=== PATIENT | female | born 1985 | race Caucasian/White ===

== ENCOUNTER 2019-04-03 23:20 | Emergency (ER) | payer OTHER, SELFPAY ==
--- NOTE | 2019-04-04 00:13 | ER ---
Nurse's Notes [facility] Name: Deanna Parikh Age: 33 yrs Sex: Female : 1985 Arrival Date: 04/03/2019 Time: 23:26 Bed 18 Private MD: Diagnosis: Allergic contact dermatitis Presentation: 04/03 23:29 Presenting complaint: Patient states: I have a wound on my left lower leg that has been la1 there for about a week. The doctor gave me a shot in my butt but I dont know what it is. Transition of care: patient was not received from another setting of care. Onset of symptoms was April 03, 2019. Risk Assessment: Do you want to hurt yourself or someone else? Patient reports no desire to harm self or others. Initial Sepsis Screen: Does the patient meet any 2 criteria? No. Patient's initial sepsis screen is negative. Does the patient have a suspected source of infection? No. Patient's initial sepsis screen is negative. Care prior to arrival: None. 23:29 Method Of Arrival: Ambulatory la1 23:29 Acuity: KRUNAL 4 la1 Triage Assessment: 23:30 General: Appears in no apparent distress. comfortable, Behavior is calm, cooperative, rr5 appropriate for age. 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 - Social history:: Smoking status: Patient uses tobacco products, smokes one pack cigarettes per day. - Ebola Screening: : No symptoms or risks identified at this time. Screenin:30 Abuse screen: Denies threats or abuse. Denies injuries from another. Nutritional rr5 screening: No deficits noted. Tuberculosis screening: No symptoms or risk factors identified. Fall Risk None identified. Total Sorensen Fall Scale indicates No Risk (0-24 pts). Assessment: 23:30 General: Appears in no apparent distress. comfortable, Behavior is calm, cooperative, rr5 appropriate for age. Pain: Denies pain. Neuro: Level of Consciousness is awake, alert, obeys commands, Oriented to person, place, time, situation, Appropriate for age. 23:30 Cardiovascular: Capillary refill < 3 seconds Patient's skin is warm and dry. rr5 Respiratory: Airway is patent Respiratory effort is even, unlabored, Respiratory pattern is regular, symmetrical. GI: No signs and/or symptoms were reported involving the gastrointestinal system. : No signs and/or symptoms were reported regarding the genitourinary system. EENT: No signs and/or symptoms were reported regarding the EENT system. Derm: Skin is intact, Skin temperature is warm Rash noted that is raised, on left lower leg near ankle area dry and scaly. Musculoskeletal: Capillary refill < 3 seconds, Range of motion: intact in all extremities. Vital Signs: 23:30 BP 148 / 98; Pulse 96; Resp 16; Temp 97.4; Pulse Ox 98% on R/A; Weight 68.04 kg; Height la1 5 ft. 3 in. (160.02 cm); 04/04 00:25 BP 120 / 81; Pulse 90; Resp 16; Temp 98.1; Pulse Ox 99% on R/A; rr5 04/03 23:30 Body Mass Index 26.57 (68.04 kg, 160.02 cm) la1 ED Course: 04/03 23:26 Patient arrived in ED. do 23:30 Triage completed. la1 23:31 Arm band placed on left wrist. la1 23:33 Uvaldo Maldonado NP is PHCP. pm1 23:33 Alex Granados MD is Attending Physician. pm1 23:33 Patient has correct armband on for positive identification. Bed in low position. Call rr5 light in reach. 04/04 00:06 Luis Gomez RN is Primary Nurse. rr5 00:20 Wound care: to rashes located on anterior aspect of left ankle was cleaned with rr5 Hibiclens, dressed with Neosporin, 4X4s, Kerlix, Patient tolerated well. 00:30 No provider procedures requiring assistance completed. Patient did not have IV access rr5 during this emergency room visit. 00:36 Primary Nurse role handed off by Luis Gomez, RN rr5 00:37 Luis Gomez RN is Primary Nurse. rr5 Administered Medications: 00:20 Drug: Benadryl 25 mg Route: PO; rr5 00:35 Follow up: Response: Medication administered at discharge. rr5 00:20 Drug: Pepcid 20 mg Route: PO; rr5 00:35 Follow up: Response: Medication administered at discharge. rr5 00:20 Drug: Bactrim (160 mg-800 mg (DS) 1 tablet Route: PO; rr5 00:35 Follow up: Response: Medication administered at discharge. rr5 00:22 Drug: Decadron 10 mg Route: IM; Site: right gluteus; rr5 00:35 Follow up: Response: Medication administered at discharge. rr5 Outcome: 00:12 Discharge ordered by MD. pm1 00:30 Discharged to home ambulatory. rr5 00:30 Condition: stable 00:30 Discharge instructions given to patient, family, Instructed on discharge instructions, follow up and referral plans. medication usage, Demonstrated understanding of instructions, follow-up care, medications, Prescriptions given X 4. 00:33 Patient left the ED. rr5 00:41 Patient left the ED. rr5 Signatures: Janes Arevalo RN RN la1 Rhonda Soto Patrick, NP AMPHIBIAN CREWMEMBER pm1 Luis Gomez RN RN rr5
--- NOTE | 2019-04-04 00:14 | EDPHYS ---
Physician Documentation [facility] Name: Deanna Parikh Age: 33 yrs Sex: Female : 1985 Arrival Date: 04/03/2019 Time: 23:26 Bed 18 Private MD: ED Physician Alex Granados HPI: 04/04 00:38 This 33 yrs old Female presents to ER via Ambulatory with complaints of Rash. pm1 00:38 The patient's rash thought to be caused by Contact allergy. The rash is located on the pm1 right arm and left arm and anterior aspect of left ankle. The rash can be described as crusted, raised. Onset: The symptoms/episode began/occurred 1 week(s) ago. Associated signs and symptoms: Pertinent positives: itching, Pertinent negatives: fever, swelling of lips, swelling of throat, swelling of tongue. Severity of symptoms: in the emergency department the symptoms are unchanged. The patient has not experienced similar symptoms in the past. The patient has been recently seen by a physician: the patient's primary care provider, given steroid shot, no prescription. 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 - Social history:: Smoking status: Patient uses tobacco products, smokes one pack cigarettes per day. - Ebola Screening: : No symptoms or risks identified at this time. ROS: 04/04 00:38 Constitutional: Negative for fever, chills, and weight loss, Eyes: Negative for injury, pm1 pain, redness, and discharge, ENT: Negative for injury, pain, and discharge, Neck: Negative for injury, pain, and swelling, Cardiovascular: Negative for chest pain, palpitations, and edema, Respiratory: Negative for shortness of breath, cough, wheezing, and pleuritic chest pain, Abdomen/GI: Negative for abdominal pain, nausea, vomiting, diarrhea, and constipation, Back: Negative for injury and pain, : Negative for injury, bleeding, discharge, and swelling, MS/Extremity: Negative for injury and deformity. Skin: Positive for rash, of the anterior aspect of left ankle and left arm and right arm. Neuro: Positive for numbness, of the dorsum of left foot. Exam: 00:38 Constitutional: This is a well developed, well nourished patient who is awake, alert, pm1 and in no acute distress. Head/Face: Normocephalic, atraumatic. Eyes: Pupils equal round and reactive to light, extra-ocular motions intact. Lids and lashes normal. Conjunctiva and sclera are non-icteric and not injected. Cornea within normal limits. Periorbital areas with no swelling, redness, or edema. ENT: Nares patent. No nasal discharge, no septal abnormalities noted. Tympanic membranes are normal and external auditory canals are clear. Oropharynx with no redness, swelling, or masses, exudates, or evidence of obstruction, uvula midline. Mucous membranes moist. Neck: Trachea midline, no thyromegaly or masses palpated, and no cervical lymphadenopathy. Supple, full range of motion without nuchal rigidity, or vertebral point tenderness. No Meningismus. Chest/axilla: Normal chest wall appearance and motion. Nontender with no deformity. No lesions are appreciated. Cardiovascular: Regular rate and rhythm with a normal S1 and S2. No gallops, murmurs, or rubs. Normal PMI, no JVD. No pulse deficits. Respiratory: Lungs have equal breath sounds bilaterally, clear to auscultation and percussion. No rales, rhonchi or wheezes noted. No increased work of breathing, no retractions or nasal flaring. Abdomen/GI: Soft, non-tender, with normal bowel sounds. No distension or tympany. No guarding or rebound. No evidence of tenderness throughout. Back: No spinal tenderness. No costovertebral tenderness. Full range of motion. 00:38 MS/ Extremity: Pulses equal, no cyanosis. Neurovascular intact. Full, normal range of motion. 00:38 Skin: Appearance: normal except for affected area, consistent with contact dermatitis. 00:38 Neuro: Orientation: is normal, Motor: is normal, moves all fours. Vital Signs: 04/03 23:30 BP 148 / 98; Pulse 96; Resp 16; Temp 97.4; Pulse Ox 98% on R/A; Weight 68.04 kg; Height la1 5 ft. 3 in. (160.02 cm); 04/04 00:25 BP 120 / 81; Pulse 90; Resp 16; Temp 98.1; Pulse Ox 99% on R/A; rr5 04/03 23:30 Body Mass Index 26.57 (68.04 kg, 160.02 cm) la1 MDM: 04/03 23:37 Patient medically screened. pm1 04/04 00:11 Data reviewed: vital signs. Data interpreted: Pulse oximetry: on room air is 98 %. pm1 Interpretation: normal. Counseling: I had a detailed discussion with the patient and/or guardian regarding: the historical points, exam findings, and any diagnostic results supporting the discharge/admit diagnosis, the need for outpatient follow up, to return to the emergency department if symptoms worsen or persist or if there are any questions or concerns that arise at home. Administered Medications: 00:20 Drug: Benadryl 25 mg Route: PO; rr5 00:35 Follow up: Response: Medication administered at discharge. rr5 00:20 Drug: Pepcid 20 mg Route: PO; rr5 00:35 Follow up: Response: Medication administered at discharge. rr5 00:20 Drug: Bactrim (160 mg-800 mg (DS) 1 tablet Route: PO; rr5 00:35 Follow up: Response: Medication administered at discharge. rr5 00:22 Drug: Decadron 10 mg Route: IM; Site: right gluteus; rr5 00:35 Follow up: Response: Medication administered at discharge. rr5 Disposition: 04:24 Co-signature as Attending Physician, Alex Granados MD. gs Disposition: 04/04/19 00:12 Discharged to Home. Impression: Allergic contact dermatitis. - Condition is Stable. - Discharge Instructions: Contact Dermatitis. - Prescriptions for Benadryl 25 mg Oral Capsule - take 1 capsule by ORAL route every 6 hours As needed; 30 tablet. Pepcid 20 mg Oral Tablet - take 1 tablet by ORAL route every 12 hours for 5 days; 10 tablet. Medrol (Eleazar) 4 mg Oral Tablets, Dose Pack - take 1 tablet by ORAL route as directed - follow package instructions; 1 packet. Bactrim DS 800- 160 mg Oral Tablet - take 1 tablet by ORAL route every 12 hours for 10 days; 20 tablet. - Medication Reconciliation Form, Thank You Letter, Antibiotic Education, Prescription Opioid Use, Family Work Release form. - Follow up: Emergency Department; When: As needed; Reason: Worsening of condition. Follow up: Private Physician; When: 2 - 3 days; Reason: Recheck today's complaints, Continuance of care, Re-evaluation by your physician. - Problem is new. - Symptoms have improved. Signatures: Janes Arevalo, RN RN la1 Uvaldo Maldonado CUSTOMER SECURITY CLERK CUSTOMER SECURITY CLERK pm1 Alex Granados MD MD gs Roque, Raymond RN RN rr5 Corrections: (The following items were deleted from the chart) 00:33 00:12 04/04/2019 00:12 Discharged to Home. Impression: Allergic contact dermatitis. rr5 Condition is Stable. Forms are Medication Reconciliation Form, Thank You Letter, Antibiotic Education, Prescription Opioid Use. Follow up: Emergency Department; When: As needed; Reason: Worsening of condition. Follow up: Private Physician; When: 2 - 3 days; Reason: Recheck today's complaints, Continuance of care, Re-evaluation by your physician. Problem is new. Symptoms have improved. pm1 00:41 00:33 04/04/2019 00:12 Discharged to Home. Impression: Allergic contact dermatitis. rr5 Condition is Stable. Discharge Instructions: Contact Dermatitis. Prescriptions for Benadryl 25 mg Oral Capsule - take 1 capsule by ORAL route every 6 hours As needed; 30 tablet, Pepcid 20 mg Oral Tablet - take 1 tablet by ORAL route every 12 hours for 5 days; 10 tablet, Medrol (Eleazar) 4 mg Oral Tablets, Dose Pack - take 1 tablet by ORAL route as directed - follow package instructions; 1 packet, Bactrim DS 800-160 mg Oral Tablet - take 1 tablet by ORAL route every 12 hours for 10 days; 20 tablet. and Forms are Medication Reconciliation Form, Thank You Letter, Antibiotic Education, Prescription Opioid Use, Family Work Release. Follow up: Emergency Department; When: As needed; Reason: Worsening of condition. Follow up: Private Physician; When: 2 - 3 days; Reason: Recheck today's complaints, Continuance of care, Re-evaluation by your physician. Problem is new. Symptoms have improved. rr5
[2019-04-04] MEDS ORDERED: DIPHENHYDRAMINE 25 MG TAB/CAP ONE (00:25)
[2019-04-04] MEDS ORDERED: DEXAMETHASONE 10 MG/ML VIAL ONE (00:25)
[2019-04-04] MEDS ORDERED: SMZ./TMP. 800/160 MG TABLET ONE (00:26)
[2019-04-04] MEDS ORDERED: FAMOTIDINE 20 MG TAB ONE (00:26)
[2019-04-04 00:48] VITALS: BP 148/98; TEMP 97.4; O2SAT 98
== END 2019-04-04 00:41 | disposition home or self-care (01) ==
LOC: ER 23:20
DX: L23.9 Allergic contact dermatitis, unspecified cause (principal); F17.210 Nicotine dependence, cigarettes, uncomplicated
CPT/HCPCS: 96372; 99283; J1100

== ENCOUNTER 2019-06-02 08:35 | Emergency (ER) | payer OTHER ==
[2019-06-02] MEDS ORDERED: LORAZEPAM 1 MG TABLET PO ONE (08:36)
--- OUTSIDE RECORDS SUMMARY | 2019-06-02 08:38 | XMS REPORT ---
:1985 Author Organization [employer] Care Team Providers Name Role Phone Devaughn Sanches Provider Role Unavailable Allergies No Known Allergies Problems Problem Type Condition Code Onset Dates Condition Status Problem GERD without esophagitis K21.9 Active Problem Anxiety disorder, unspecified type F41.9 Active Problem depression F53 Active Problem Depression, unspecified depression F32.9 Active type Medications Medication Code System Code Instructions Start Date End Date Status Dosage Diflucan [facility] 68902116086 150 MG Orally January 19, Active 1 tablet Once a day 2018 Results No Known Results Summary Purpose [employer] Submission
--- OUTSIDE RECORDS SUMMARY | 2019-06-02 08:38 | XMS REPORT ---
:1985 Author Organization [employer] Care Team Providers Name Role Phone Devaughn Sanches Provider Role Unavailable Allergies No Known Allergies Problems Problem Type Condition Code Onset Dates Condition Status Problem GERD without esophagitis K21.9 Active Problem Anxiety disorder, unspecified type F41.9 Active Problem depression F53 Active Assessment Possible urinary tract infection R39.89 Active Problem Depression, unspecified depression F32.9 Active type Medications No Known Medications Results No Known Results Summary Purpose [employer] Submission
--- OUTSIDE RECORDS SUMMARY | 2019-06-02 08:38 | XMS REPORT ---
[...] Instructions Start Date End Date Status Dosage Flagyl [facility] 44704618107 500 MG Orally January 21, Active 1 tablet twice a day 2018 Results No Known Results Summary Purpose [employer] Submission
--- OUTSIDE RECORDS SUMMARY | 2019-06-02 08:38 | XMS REPORT ---
:1985 Author Organization [employer] Care Team Providers Name Role Phone Azael Dye Provider Role Unavailable Allergies, Adverse Reactions, Alerts Substance Reaction Event Type N.K.D.A. Info Not Available Non Drug Allergy Problems Problem Type Condition Code Onset Dates Condition Status Assessment GERD without esophagitis K21.9 Active Assessment Bug bite with infection, initial W57.XXXA Active encounter Assessment Anxiety disorder, unspecified type F41.9 Active Problem GERD without esophagitis K21.9 Active Problem Anxiety disorder, unspecified type F41.9 Active Problem depression F53 Active Assessment Allergic dermatitis due to poison L23.7 Active julio Assessment depression F53 Active Problem Depression, unspecified depression F32.9 Active type Medications Medication Code Code Instructions Start End Status Dosage System Date Date Omeprazole ND 58022806737 40 MG Orally Active 1 capsule twice a day Sertraline HCl ND 55384853025 50 MG Orally Inactive take 1/2 Once a day tab once a day x 1 week then 1 tab once a day Diflucan ND 48919307159 150 MG Orally January Active 1 tablet Once a day 2018 Amoxicillin-Pot ND 41412630693 875-125 MG April 01April Active 1 tablet Clavulanate Orally every 12 2018 07, hrs 2019 Flagyl ND 58932897560 500 MG Orally January Active 1 tablet twice a day 2018 Lexapro ND 20185199756 10 MG Orally April 01 Active take 1/2 Once a day 2018 tab once a day x 1 week then 1 tab once a day HydrOXYzine HCl ND 65204583219 25 MG Orally January Active 1 tablet every 6 hrs 2017 as needed Results No Known Results Summary Purpose [employer]ClinicalWorks Submission
--- NOTE | 2019-06-02 10:04 | ER ---
Nurse's Notes [facility] Name: Deanna Parikh Age: 33 yrs Sex: Female : 1985 Arrival Date: 06/02/2019 Time: 08:36 Bed 7 Private MD: Diagnosis: Anxiety disorder, unspecified Presentation: 06/02 08:41 Presenting complaint: Patient states: i stopped my Lexapro 20 mg 4 days ago because i tw2 didn't like the way it made me feel, i have been waking up anxious and short of breath each morning but it goes away but its worse this morning. Transition of care: patient was not received from another setting of care. Onset of symptoms was June 02, 2019. Risk Assessment: Do you want to hurt yourself or someone else? Patient reports no desire to harm self or others. Initial Sepsis Screen: Does the patient meet any 2 criteria? No. Patient's initial sepsis screen is negative. Does the patient have a suspected source of infection? No. Patient's initial sepsis screen is negative. Care prior to arrival: None. 08:41 Method Of Arrival: Wheelchair tw2 08:41 Acuity: KRUNAL 3 tw2 Triage Assessment: 08:43 General: Appears distressed, Behavior is anxious. Pain: Denies pain. Respiratory: tw2 Reports shortness of breath at rest on exertion Onset: The symptoms/episode began/occurred this morning, the patient has moderate shortness of breath. 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 tw2 Historical: - Allergies: 08:44 NKDA; tw2 - Home Meds: 08:44 Vitamin Oral [Active]; Lexapro 20 mg Oral tab 1 tab once daily (Last Dose: tw2 05/29/2019 08:00) [Active]; - PSHx: 08:44 ; tw2 - Immunization history:: Adult Immunizations. - Social history:: Smoking status: Patient/guardian denies using alcohol, street drugs, The patient lives with spouse. - Ebola Screening: : Patient denies travel to an Ebola-affected area in the 21 days before illness onset. - Family history:: not pertinent. Screenin:42 Abuse screen: Denies threats or abuse. Denies injuries from another. Nutritional sv screening: No deficits noted. Tuberculosis screening: No symptoms or risk factors identified. Fall Risk None identified. Assessment: 08:44 Respiratory: Airway is patent Respiratory effort is even, unlabored, Respiratory tw2 pattern is symmetrical, hyperventilation. 08:50 Reassessment: Pt reports being on the Lexapro for 3 months and stopped it abruptly sv because of the way it made me feel. 08:54 General: Appears in no apparent distress. Behavior is anxious. Pain: Denies pain. tw2 Neuro: Level of Consciousness is awake, alert, obeys commands, Oriented to person, place, time, situation. Cardiovascular: Heart tones S1 S2 Patient's skin is warm and dry. Rhythm is regular. Respiratory: Reports shortness of breath Airway is patent Respiratory effort is even, unlabored, Respiratory pattern is symmetrical, hyperventilation Breath sounds are clear bilaterally. GI: No signs and/or symptoms were reported involving the gastrointestinal system. : No signs and/or symptoms were reported regarding the genitourinary system. EENT: No signs and/or symptoms were reported regarding the EENT system. Derm: Reports tingling. Musculoskeletal: Range of motion: intact in all extremities. 10:01 Reassessment: Patient appears in no apparent distress at this time. Patient and/or tw2 family updated on plan of care and expected duration. Pain level reassessed. Patient is alert, oriented x 3, equal unlabored respirations, skin warm/dry/pink. Patient states feeling better. Patient states symptoms have improved. 10:12 Reassessment: Patient appears in no apparent distress at this time. Patient and/or tw2 family updated on plan of care and expected duration. Pain level reassessed. Patient is alert, oriented x 3, equal unlabored respirations, skin warm/dry/pink. Vital Signs: 08:45 BP 132 / 120; Pulse 92; Resp 24; Temp 97.9(TE); Pulse Ox 95% on R/A; Weight 54.43 kg tw2 (R); Height 5 ft. 4 in. (162.56 cm); Pain 0/10; 09:56 BP 110 / 84; Pulse 77; Resp 17; Pulse Ox 100% on R/A; tw2 08:45 Body Mass Index 20.60 (54.43 kg, 162.56 cm) tw2 ED Course: 08:36 Patient arrived in ED. as 08:38 Erwin Rodrigues MD is Attending Physician. ma2 08:41 Sheree Kunz, RN is Primary Nurse. tw2 08:42 Arm band placed on. sv 08:42 Patient has correct armband on for positive identification. Bed in low position. Call light in reach. Pulse ox on. NIBP on. 08:43 Triage completed. tw2 08:43 Door closed. Head of bed elevated. sv 10:12 No provider procedures requiring assistance completed. Patient did not have IV access tw2 during this emergency room visit. Administered Medications: 08:50 Drug: Ativan 2 mg Route: PO; tw2 09:56 Follow up: Response: No adverse reaction; Marked relief of symptoms; Anxiety decreased tw2 Outcome: 10:03 Discharge ordered by . ma2 10:12 Discharged to home ambulatory, with significant other. tw2 10:12 Condition: stable 10:12 Discharge instructions given to patient, significant other, Instructed on discharge instructions, follow up and referral plans. no drinking with medication, no driving heavy equipment, medication usage, Demonstrated understanding of instructions, follow-up care, medications, Prescriptions given X 1. 10:13 Patient left the ED. tw2 Signatures: Deanna Decker, RN RN Cecelia Moran as Sheree Kunz RN RN tw2 Erwin Rodrigues MD MD ma2 Corrections: (The following items were deleted from the chart) 08:57 08:45 Resp 24bpm; Pulse Ox 95% RA; Temp 97.9F Temporal; Pain 0/10; tw2 tw2
--- NOTE | 2019-06-02 10:04 | EDPHYS ---
Physician Documentation [facility] Name: Deanna Parikh Age: 33 yrs Sex: Female : 1985 Arrival Date: 06/02/2019 Time: 08:36 Bed 7 Private MD: ED Physician Erwin Rodrigues HPI: 06/02 09:22 This 33 yrs old Female presents to ER via Wheelchair with complaints of ma2 Breathing Difficulty, Numbness. 09:22 Onset: The symptoms/episode began/occurred suddenly, 1 hour(s) ago. Associated signs ma2 and symptoms: Pertinent negatives: productive cough, dizziness, hemoptysis. Severity of symptoms: At their worst the symptoms were mild in the emergency department the symptoms have resolved. The patient has experienced similar episodes in the past. hx of anxiety stopped her medication last week . CLIENT LIAISON: 10:12 LMP N/A - . tw2 Historical: - Allergies: 08:44 NKDA; tw2 - Home Meds: 08:44 Vitamin Oral [Active]; Lexapro 20 mg Oral tab 1 tab once daily (Last Dose: tw2 05/29/2019 08:00) [Active]; - PSHx: 08:44 ; tw2 - Immunization history:: Adult Immunizations. - Social history:: Smoking status: Patient/guardian denies using alcohol, street drugs, The patient lives with spouse. - Ebola Screening: : Patient denies travel to an Ebola-affected area in the 21 days before illness onset. - Family history:: not pertinent. ROS: 09:22 Constitutional: Negative for fever, chills, and weight loss. ma2 09:22 All other systems are negative. Exam: 09:22 Constitutional: This is a well developed, well nourished patient who is awake, alert, ma2 and in no acute distress. 09:22 Chest/axilla: Normal chest wall appearance and motion. Nontender with no deformity. No lesions are appreciated. Cardiovascular: Regular rate and rhythm with a normal S1 and S2. No gallops, murmurs, or rubs. Normal PMI, no JVD. No pulse deficits. Respiratory: Lungs have equal breath sounds bilaterally, clear to auscultation and percussion. No rales, rhonchi or wheezes noted. No increased work of breathing, no retractions or nasal flaring. Abdomen/GI: Soft, non-tender, with normal bowel sounds. No distension or tympany. No guarding or rebound. No evidence of tenderness throughout. 09:22 Psych: Behavior/mood is anxious, Affect is Vital Signs: 08:45 BP 132 / 120; Pulse 92; Resp 24; Temp 97.9(TE); Pulse Ox 95% on R/A; Weight 54.43 kg tw2 (R); Height 5 ft. 4 in. (162.56 cm); Pain 0/10; 09:56 BP 110 / 84; Pulse 77; Resp 17; Pulse Ox 100% on R/A; tw2 08:45 Body Mass Index 20.60 (54.43 kg, 162.56 cm) tw2 MDM: 08:38 Patient medically screened. ma2 09:22 Differential diagnosis: Anxiety Reaction Pneumothorax Psychogenic reactive airway ma2 disease. Data reviewed: vital signs, nurses notes, EMS record. Counseling: I had a detailed discussion with the patient and/or guardian regarding: the historical points, exam findings, and any diagnostic results supporting the discharge/admit diagnosis, the presence of at least one elevated blood pressure reading (>120/80) during this emergency department visit, the need for outpatient follow up. Administered Medications: 08:50 Drug: Ativan 2 mg Route: PO; tw2 09:56 Follow up: Response: No adverse reaction; Marked relief of symptoms; Anxiety decreased tw2 Disposition: 06/02/19 10:03 Discharged to Home. Impression: Anxiety disorder, unspecified. - Condition is Stable. - Discharge Instructions: Form - Return To School, Generalized Anxiety Disorder. - Prescriptions for Ativan 0.5 mg Oral Tablet - take 1 tablet by ORAL route every 8 hours As needed; 20 tablet. - Work release form, Family Work Release, Medication Reconciliation Form, Thank You Letter, Antibiotic Education, Prescription Opioid Use form. - Follow up: Private Physician; When: Tomorrow; Reason: Continuance of care. Signatures: Sheree Kunz RN RN tw2 Erwin Rodrigues MD MD ma2 Corrections: (The following items were deleted from the chart) 10:13 10:03 06/02/2019 10:03 Discharged to Home. Impression: Anxiety disorder, unspecified. tw2 Condition is Stable. Discharge Instructions: Generalized Anxiety Disorder, Form - Return To School. Prescriptions for Ativan 0.5 mg Oral Tablet - take 1 tablet by ORAL route every 8 hours As needed; 20 tablet. and Forms are Work release form, Family Work Release, Medication Reconciliation Form, Thank You Letter, Antibiotic Education, Prescription Opioid Use. Follow up: Private Physician; When: Tomorrow; Reason: Continuance of care. ma2
[2019-06-02 10:43] VITALS: BP 110/84; TEMP 97.9; O2SAT 100
== END 2019-06-02 10:13 | disposition home or self-care (01) ==
LOC: ER 08:35
DX: F41.9 Anxiety disorder, unspecified (principal)
CPT/HCPCS: 99283